=== PATIENT | male | born 1960 | race Caucasian/White ===

== ENCOUNTER 2019-07-11 11:42 | Emergency (ER) | payer MEDICAID ==
[~2019-07-11] VITALS: Ht 160 cm; Wt 82.0 kg
[~2019-07-11 11:42] MED LIST: METF-414
[2019-07-11] MEDS ORDERED: ACETAMINOPHEN 500MG TABLET PO ONE (15:15)
[2019-07-11] MEDS ORDERED: IBUPROFEN 600MG TABLET PO ONE (15:15)
[2019-07-11 15:21] VITALS: BP 150/89
== END 2019-07-11 15:46 | disposition home or self-care (01) ==
LOC: ER 11:42
DX: S40.861A Insect bite (nonvenomous) of right upper arm, initial encounter (principal); W57.XXXA Bitten or stung by nonvenomous insect and other nonvenomous arthropods, initial encounter; Y93.89 Activity, other specified; Y92.89 Other specified places as the place of occurrence of the external cause; Y99.8 Other external cause status
CPT/HCPCS: 99283

== ENCOUNTER 2021-08-06 15:08 | Emergency (ER) | payer MEDICAID ==
[~2021-08-06] VITALS: Ht 162.6 cm; Wt 91.0 kg
[2021-08-06 15:14] VITALS: BP 146/46
[2021-08-06] MEDS ORDERED: PIOG45TA62 PO (15:20)
[2021-08-06] MEDS ORDERED: GLIP10TA10 PO (15:20)
[2021-08-06] MEDS ORDERED: ATOR10TA69 PO (15:20)
[2021-08-06] MEDS ORDERED: TAMS-11 PO (15:20)
[2021-08-06] MEDS ORDERED: LISI20TA31 PO (15:20)
[2021-08-06 19:21] LABS: CLARITY URINE CLEAR (CLEAR); COLOR URINE YELLOW (YELLOW); KETONES URINE NEGATIVE (NEGATIVE); LEUKOCYTE ESTERASE URINE NEGATIVE (NEGATIVE); NITRITE URINE NEGATIVE (NEGATIVE); OCCULT BLOOD URINE NEGATIVE (NEGATIVE); PH URINE 5.5 (4.5-8.0); PROTEIN URINE NEGATIVE (NEGATIVE); SPECIFIC GRAVITY URINE 1.021 (1.005-1.030); UROBILINOGEN URINE 0.2 E.U./dL (0.2-1.0)
[2021-08-06 21:06] LABS: BASOPHILS % 0.3 % (0.0-2.0); EOSINOPHILS % 1.5 % (0.0-5.0); HEMOGLOBIN. 13.9 g/dL (14.0-18.0); LYMPHOCYTES % 26.5 % (20.0-50.0); MEAN CORPUSCULAR HEMOGLOBIN 31.8 pg (28.0-32.0); MEAN CORPUSCULAR VOLUME 93.4 fL (80.0-94.0); MEAN PLATELET VOLUME 7.2 fl (7.4-10.4); MONOCYTES % 9.2 % (2.0-8.0); NEUTROPHILS % 62.5 % (40.0-76.0); PLATELET 201 x1000/uL (130-400); RED BLOOD CELL COUNT 4.38 mill/uL (4.7-6.1); RED CELL DISTRIBUTION WIDTH 12.9 % (11.6-14.6)
[2021-08-06 21:14] LABS: CHLORIDE 107 mEq/L (98-107)
[2021-08-06 21:20] LABS: C REACTIVE PROTEIN QUANT 0.2 mg/L (0.0-3.0)
[2021-08-06] MEDS ORDERED: ACET-2708 MT (21:40)
== END 2021-08-06 22:15 | disposition home or self-care (01) ==
LOC: ER 15:08
DX: N40.1 Benign prostatic hyperplasia with lower urinary tract symptoms (principal); N43.3 Hydrocele, unspecified; N43.41 Spermatocele of epididymis, single; M79.605 Pain in left leg; M79.604 Pain in right leg; I10 Essential (primary) hypertension; E11.9 Type 2 diabetes mellitus without complications
CPT/HCPCS: 36415; 76700; 76870; 80053; 81003; 83605; 85025; 86140; 93976; 99284

== ENCOUNTER 2022-03-05 15:04 | Emergency (ER) | payer MEDICAID ==
[~2022-03-05] VITALS: Ht 160 cm; Wt 87.0 kg
[~2022-03-05 15:04] MED LIST changes: +ACET-2708 MT; +ATOR10TA69 PO; +GLIP10TA10 PO; +LISI20TA31 PO; +PIOG45TA62 PO; +TAMS-11 PO
[2022-03-05] MEDS ORDERED: ACETAMINOPHEN 325MG TABLET PO STA (16:04)
[2022-03-05] MEDS ORDERED: FLUORESCEIN SODIUM 1MG/STRIP BOTHEYE ONE (16:15)
[2022-03-05] MEDS ORDERED: TETRACAINE 0.5% OPHTH DROPS 4ML BOTHEYE ONE (16:15)
[2022-03-05 16:52] LABS: BASOPHILS % 0.8 % (0.0-2.0); EOSINOPHILS % 3.1 % (0.0-5.0); HEMATOCRIT. 41.5 % (42.0-52.0); HEMOGLOBIN. 13.8 g/dL (14.0-18.0); LYMPHOCYTES % 30.9 % (20.0-50.0); MEAN CORPUSCULAR HEMOGLOBIN 31.7 pg (28.0-32.0); MEAN CORPUSCULAR VOLUME 95.2 fL (80.0-94.0); MEAN PLATELET VOLUME 7.3 fl (7.4-10.4); NEUTROPHILS % 55.2 % (40.0-76.0); PLATELET 245 x1000/uL (130-400); RED BLOOD CELL COUNT 4.36 mill/uL (4.7-6.1); RED CELL DISTRIBUTION WIDTH 13.6 % (11.6-14.6)
[2022-03-05 17:01] LABS: CHLORIDE 105 mEq/L (98-107)
[2022-03-05] MEDS ORDERED: IBUP-2028 MT (17:56)
[2022-03-05 19:00] VITALS: BP 128/71
== END 2022-03-05 19:00 | disposition home or self-care (01) ==
LOC: ER 15:24
DX: R51.9 Headache, unspecified (principal); H57.13 Ocular pain, bilateral; R20.0 Anesthesia of skin; H53.9 Unspecified visual disturbance; D64.9 Anemia, unspecified; I10 Essential (primary) hypertension
CPT/HCPCS: 36415; 71045; 80053; 82962; 83880; 84484; 85025; 85651; 93005; 99285

== ENCOUNTER 2024-07-22 14:47 | Emergency (ER) | payer MEDICAID ==
[~2024-07-22] VITALS: Ht 160 cm; Wt 82.0 kg
[~2024-07-22 14:47] MED LIST changes: -GLIP10TA10 PO; +GLIP10TA17 PO; +IBUP-2028 MT; +LISINOPRIL
[2024-07-22 14:49] VITALS: TEMP 37; O2SAT 98
[2024-07-22 14:56] VITALS: O2SAT 98
[2024-07-22 16:06] VITALS: BP 116/75; PULSE 105; RESP 16
[2024-07-22] MEDS: HYDROCODONE/ACETAMINOPHEN 5/325MG TABLET PO ONE (16:06)
[2024-07-22] MEDS ORDERED: CYCL10TA21 MT (17:12)
== END 2024-07-22 18:06 | disposition home or self-care (01) ==
LOC: ER 14:47
DX: M79.605 Pain in left leg (principal); E11.40 Type 2 diabetes mellitus with diabetic neuropathy, unspecified; E78.00 Pure hypercholesterolemia, unspecified; I10 Essential (primary) hypertension; N40.0 Benign prostatic hyperplasia without lower urinary tract symptoms; Z90.49 Acquired absence of other specified parts of digestive tract
CPT/HCPCS: 93971; 99284